=== PATIENT | female | born 1990 | race Caucasian/White ===

== ENCOUNTER 2020-11-15 16:22 | Inpatient (IN) | payer OTHER ==
[~2020-11-15] VITALS: Ht 152.4 cm; Wt 72.5 kg
[~2020-11-15 16:22] MED LIST: METF-960 PO; POTA20TA83 PO
[2020-11-15] MEDS ORDERED: MORPHINE SULFATE 4 MG/ML SYRINGE IVP ONE (16:30)
[2020-11-15] MEDS ORDERED: NITROGLYCERIN 2% (1 GM=INCH) PACKET TP ONE ×2 (16:30→20:15)
[2020-11-15] MEDS ORDERED: ONDANSETRON HCL 4 MG/2 ML VIAL IVP ONE (16:30)
[2020-11-15 16:53] LABS: GLUCOSE,POINT OF CARE 306 MG/DL (70-110)
[2020-11-15 17:10] LABS: COVID AG,FIA SOURCE NASOPHARYNGEAL
[2020-11-15] MEDS ORDERED: MORPHINE SULFATE 4 MG/ML SYRINGE IM ONE (17:30)
[2020-11-15] MEDS ORDERED: ONDANSETRON HCL 4 MG/2 ML VIAL IM ONE (17:30)
[2020-11-15 18:05] LABS: BASOPHILS % (AUTO) 1.1 % (0.0-2.0); EOSINOPHILS % (AUTO) 0.7 % (1.0-6.0); HEMATOCRIT 23.4 % (36-46); HEMOGLOBIN 7.6 g/dL (12.0-16.0); LYMPHOCYTES # (AUTO) 0.5 K/uL (1.0-4.8); LYMPHOCYTES % (AUTO) 3.8 % (22.0-44.0); MEAN CORPUSCULAR HEMOGLOBIN 31.8 pg (26.0-34.0); MEAN CORPUSCULAR HGB CONC 32.5 G/dL (31.0-37.0); MEAN CORPUSCULAR VOLUME 98 fL (80-100); MONOCYTES # (AUTO) 0.4 K/uL (0.1-1.0); MONOCYTES % (AUTO) 3.3 % (2.0-9.0); PLATELET COUNT (AUTO) 147 K/uL (150-450); RED BLOOD CELL COUNT(AUTO) 2.39 MIL/uL (4.00-5.20); RED CELL DISTRIBUTION WIDTH 19.3 % (11.5-14.5)
[2020-11-15 18:10] LABS: NEUTROPHILS % (AUTO) 91.1 % (40.0-70.0)
[2020-11-15 18:15] LABS: ANION GAP 13 mmol/L (8-16); CALCIUM, TOTAL 8.7 mg/dL (8.8-10.5); CARBON DIOXIDE 25 mmol/L (22-29); CHLORIDE 97 mmol/L (98-107); CREATININE 6.06 mg/dL (0.60-1.30); GLOMERULAR FILTR. RATE CALC 8 mL/min (>60); GLUCOSE,RANDOM 317 mg/dL (70-110); POTASSIUM 4.5 mmol/L (3.5-5.1); SODIUM SERUM 135 mmol/L (136-145); UREA NITROGEN, BLOOD 47 mg/dL (7-18)
[2020-11-15 18:40] LABS: ALANINE AMINOTRANSFERASE 33 U/L (12-78); ALBUMIN 3.2 g/dL (3.4-5.0); ALKALINE PHOSPHATASE 186 U/L (46-116); ASPARTATE AMINOTRANSFERASE 24 U/L (15-37); BILIRUBIN,TOTAL 0.9 mg/dL (0.1-1.0); CREATINE KINASE, TOTAL ONLY 94 U/L (26-192); HCG,QUANTITATIVE < 1 mIU/mL (0-6); TOTAL PROTEIN, SERUM 7.4 g/dL (6.4-8.2)
[2020-11-15 18:42] LABS: PLATELET MORPHOLOGY COMMENT LARGE PLTS PRESENT
[2020-11-15] MEDS ORDERED: CefTRIAXone 1 GM/DEXTROSE 50 ML IV ONE (18:45)
[2020-11-15] MEDS ORDERED: AZITHROMYCIN 500 MG/NS 250 ML IV ONE (18:45)
[2020-11-15] MEDS ORDERED: NITROGLYCERIN 50 MG/D5% WATER 250 ML IV PRN (18:45)
[2020-11-15 18:46] LABS: ABG A-A DIFF O2 409.2 mmHg (10-20.0); ABG CARBOXYHEMOGLOBIN 1.4 % (0.0-3.0); ABG HCO3 27.1 mmol/L (22.0-26.0); ABG METHEMOGLOBIN 0.3 % (0.0-1.5); ABG OXYGEN CONTENT 12.2 mL/dL (15.0-23.0); ABG OXYGEN SATURATION 99.9 % (95.0-98.0); ABG OXYHEMOGLOBIN 98.2 % (94.0-100.0); ABG PCO2 36 mmHg (35-45); ABG PH 7.486 (7.350-7.450); ABG TOTAL HEMOGLOBIN 8.3 G/dL (12.0-18.0); O2 DEVICE,BLOOD GAS BIPAP (ROOM AIR); SITE, BLOOD GAS RT RADIAL; SOURCE, BLOOD GAS ARTERIAL; SPONTANEOUS VT, BG 630 ml; TEMPERATURE, FAHRENHEIT, BG 98.6 FAHREN (96.0-98.6); VENT MODE, BG BIPAP (ROOM AIR)
[2020-11-15 18:47] LABS: INSPIRATORY TIME, BG 0.9 SEC
[2020-11-15 19:03] LABS: B-TYPE NATRIURETIC PEPTIDE 4650 pg/mL (0-100)
[2020-11-15] MEDS: MORPHINE SULFATE 4 MG/ML SYRINGE IVP ONE ×2 (19:40→22:31)
[2020-11-15] MEDS ORDERED: ACETAMINOPHEN 325 MG TABLET PO PRN (20:15)
[2020-11-15] MEDS ORDERED: DEXAMETHASONE SOD PHOS 4 MG/ML VIAL IVP ONE (20:15)
[2020-11-15] MEDS ORDERED: ONDANSETRON HCL 4 MG/2 ML VIAL IVP PRN (20:15)
[2020-11-15] MEDS ORDERED: DEXTROSE 50%-WATER 25 GM/50 ML SYRINGE IVP PRN (20:15)
[2020-11-15] MEDS ORDERED: LABETALOL HCL 100 MG TABLET PO ONE (20:15)
[2020-11-15] MEDS ORDERED: INSULIN GLARGINE,HUM.REC.ANLOG 100 UNITS/ML SQ SCH (21:00)
[2020-11-15] MEDS: HEPARIN SODIUM,PORCINE 5,000 UNITS/ML VIAL SQ SCH (21:22)
[2020-11-15] MEDS: INSULIN LISPRO 100 UNITS/ML SQ PRN (21:25)
[2020-11-15 22:28] LABS: GLUCOSE,POINT OF CARE 314 MG/DL (70-110)
[2020-11-15] MEDS ORDERED: AmLODIPine BESYLATE 5 MG TABLET PO ONE (22:30)
[2020-11-15] MEDS ORDERED: HydrALAZINE HCL 25 MG TABLET PO ONE (22:30)
[2020-11-15] MEDS: NiCARDipine HCL 25 MG in SODIUM CHLORIDE 0.9% 240 ML IV PRN (23:29)
[2020-11-15] MEDS ORDERED: HYDROmorphone 2 MG/ML VIAL IVP PRN (23:30)
[2020-11-16] VITALS: BP 186/112
[2020-11-16] MEDS ORDERED: AZITHROMYCIN 500 MG TABLET PO ONE
[2020-11-16] MEDS ORDERED: DiphenhydrAMINE HCL 50 MG/ML VIAL IM ONE (00:15)
[2020-11-16] MEDS ORDERED: ALBUTEROL SULFATE 2.5 MG/0.5 ML NEB SOLUTION NEB ONE (01:45)
[2020-11-16] MEDS ORDERED: ONDANSETRON HCL 4 MG/2 ML VIAL IVP ONE (01:45)
[2020-11-16] MEDS ORDERED: DEXAMETHASONE SOD PHOS 4 MG/ML VIAL IVP ONE (01:45)
[2020-11-16] MEDS: MORPHINE SULFATE 4 MG/ML SYRINGE IVP PRN ×4 (01:59→20:27)
[2020-11-16] MEDS ORDERED: FAMOTIDINE 10 MG/ML 2 ML VIAL IVP ONE (02:00)
[2020-11-16] MEDS ORDERED: HALOPERIDOL LACTATE 5 MG/ML VIAL IVP ONE (02:00)
[2020-11-16 02:14] LABS: ABG A-A DIFF O2 596.5 mmHg (10-20.0); ABG BASE EXCESS 4.8 mmol/L (-2.0-3.0); ABG CARBOXYHEMOGLOBIN 1.6 % (0.0-3.0); ABG HCO3 28.6 mmol/L (22.0-26.0); ABG METHEMOGLOBIN 0.3 % (0.0-1.5); ABG OXYGEN CONTENT 11.7 mL/dL (15.0-23.0); ABG OXYGEN SATURATION 96.4 % (95.0-98.0); ABG OXYHEMOGLOBIN 94.6 % (94.0-100.0); ABG PCO2 35 mmHg (35-45); ABG PH 7.513 (7.350-7.450); ABG TOTAL HEMOGLOBIN 8.7 G/dL (12.0-18.0); PO2, ARTERIAL BG 81.2 mmHg (80.0-100.0); SOURCE, BLOOD GAS ARTERIAL; TEMPERATURE, FAHRENHEIT, BG 98.6 FAHREN (96.0-98.6)
[2020-11-16 02:15] LABS: O2 DEVICE,BLOOD GAS NRB (ROOM AIR); SITE, BLOOD GAS RT RADIAL
[2020-11-16] MEDS: NiCARDipine HCL 25 MG in SODIUM CHLORIDE 0.9% 240 ML IV PRN ×2 (03:17→10:59)
[2020-11-16 03:56] LABS: ABG A-A DIFF O2 223.3 mmHg (10-20.0); ABG BASE EXCESS 4.4 mmol/L (-2.0-3.0); ABG CARBOXYHEMOGLOBIN 1.4 % (0.0-3.0); ABG HCO3 28.4 mmol/L (22.0-26.0); ABG METHEMOGLOBIN 0.3 % (0.0-1.5); ABG OXYGEN SATURATION 99.7 % (95.0-98.0); ABG PCO2 35 mmHg (35-45); ABG PH 7.514 (7.350-7.450); ABG TOTAL HEMOGLOBIN 8.8 G/dL (12.0-18.0); PO2, ARTERIAL BG 310.6 mmHg (80.0-100.0); SOURCE, BLOOD GAS ARTERIAL; TEMPERATURE, FAHRENHEIT, BG 98.6 FAHREN (96.0-98.6)
[2020-11-16 03:59] LABS: O2 DEVICE,BLOOD GAS BIPAP (ROOM AIR); SITE, BLOOD GAS RT RADIAL; VENT MODE, BG BIPAP (ROOM AIR)
[2020-11-16 04:00] VITALS: BP 152/96
[2020-11-16 04:00] LABS: INSPIRATORY TIME, BG 0.9 SEC; SPONTANEOUS VT, BG 657 ml
[2020-11-16] MEDS ORDERED: LORazepam 2 MG/ML VIAL IVP ONE (04:15)
[2020-11-16] MEDS ORDERED: SODIUM CHLORIDE 0.9% 100 ML ONE (04:18)
[2020-11-16] MEDS ORDERED: IOVERSOL 350 MG/ML 100 ML VIAL ONE (04:18)
[2020-11-16 06:44] LABS: CALCIUM, TOTAL 8.8 mg/dL (8.8-10.5); CREATININE 3.93 mg/dL (0.60-1.30); POTASSIUM 3.9 mmol/L (3.5-5.1)
[2020-11-16] MEDS ORDERED: PNEUMOCOCCAL VACCINE POLYVALENT 0.5 ML VIAL [PPSV23] IM. ONE (07:00)
[2020-11-16] MEDS: INSULIN LISPRO 100 UNITS/ML SQ PRN ×3 (07:50→17:33)
[2020-11-16 07:58] LABS: GLUCOSE,POINT OF CARE 186 MG/DL (70-110)
[2020-11-16 08:00] VITALS: BP 182/89
[2020-11-16] MEDS: HEPARIN SODIUM,PORCINE 5,000 UNITS/ML VIAL SQ SCH ×2 (08:06→20:27)
[2020-11-16 09:38] LABS: GLUCOSE,POINT OF CARE 212 MG/DL (70-110)
[2020-11-16] MEDS: FAMOTIDINE 20 MG TABLET PO SCH (10:26)
[2020-11-16] MEDS: DiphenhydrAMINE HCL 25 MG CAPSULE PO PRN ×2 (10:26→16:41)
[2020-11-16] MEDS: LORazepam 1 MG TABLET PO PRN ×2 (10:33→15:33)
[2020-11-16 10:56] LABS: PHOSPHORUS 3.4 mg/dL (2.5-4.9)
[2020-11-16 12:00] VITALS: BP 170/39
[2020-11-16] MEDS ORDERED: DiphenhydrAMINE HCL 25 MG CAPSULE PO SCH (12:00)
[2020-11-16] MEDS ORDERED: VANCOMYCIN HCL 1 GM/D5% WATER 200 ML IV SCH (12:00)
[2020-11-16] MEDS ORDERED: *CLINICAL-RENAL DOSING MEDICATIONS CLINICAL ONE (12:00)
[2020-11-16] MEDS ORDERED: EPOETIN ALFA 10,000 UNITS/ML VIAL SQ ONE (12:00)
[2020-11-16] MEDS: INSULIN GLARGINE,HUM.REC.ANLOG 100 UNITS/ML SQ SCH ×2 (12:05→20:30)
[2020-11-16] MEDS: VITAMIN B COMP/VIT C/FOLIC ACID CAPSULE PO SCH (12:44)
[2020-11-16] MEDS ORDERED: VANCOMYCIN HCL 1 GM/D5% WATER 200 ML IV PRN (12:45)
[2020-11-16] MEDS ORDERED: LIDOCAINE/PF 1% 2 ML VIAL ONE ×2 (12:55→16:57)
[2020-11-16] MEDS ORDERED: VANCOMYCIN HCL 1 GM/D5% WATER 200 ML IV ONE (13:00)
[2020-11-16] MEDS ORDERED: VANCOMYCIN HCL 1.5 GM in DEXTROSE 5%-WATER 250 ML IV ONE (13:00)
[2020-11-16 14:28] LABS: GLUCOSE,POINT OF CARE 408 MG/DL (70-110)
[2020-11-16 16:00] VITALS: BP 160/92
[2020-11-16] MEDS ORDERED: SODIUM CHLORIDE 0.9% 2,000 ML ONE (17:08)
[2020-11-16 20:00] VITALS: BP 175/95
[2020-11-16] MEDS ORDERED: LORazepam 2 MG/ML VIAL IVP PRN (20:15)
[2020-11-16] MEDS ORDERED: DiphenhydrAMINE/ZINC ACET 30 GM CREAM TP PRN (20:15)
[2020-11-16 20:27] LABS: GLUCOSE,POINT OF CARE 386 MG/DL (70-110)
[2020-11-16] MEDS: DiphenhydrAMINE HCL 50 MG/ML VIAL IVP PRN (20:28)
[2020-11-16] MEDS: CefTRIAXone 1 GM/DEXTROSE 50 ML IV SCH (22:25)
[2020-11-16] MEDS ORDERED: PERMETHRIN 5% 60 GM CREAM TP ONE (22:30)
[2020-11-16] MEDS ORDERED: SODIUM CHLORIDE 0.9% 250 ML IV ONE (22:50)
[2020-11-16] MEDS: OLANZapine 5 MG TABLET PO SCH (22:51)
[2020-11-17] VITALS (8 sets, daily range): BP systolic 144–179; BP diastolic 66–111
[2020-11-17 00:01] LABS: GLUCOSE,POINT OF CARE 216 MG/DL (70-110)
[2020-11-17] MEDS: MORPHINE SULFATE 4 MG/ML SYRINGE IVP PRN ×5 (00:27→20:13)
[2020-11-17] MEDS: NiCARDipine HCL 25 MG in SODIUM CHLORIDE 0.9% 240 ML IV PRN ×2 (00:38→07:38)
[2020-11-17] MEDS: DiphenhydrAMINE HCL 50 MG/ML VIAL IVP PRN ×4 (02:45→21:37)
[2020-11-17] MEDS ORDERED: DiphenhydrAMINE/ZINC ACET 30 GM CREAM TP PRN (04:15)
[2020-11-17 06:58] LABS: % IRON SATURATION 24.7 % (22-44)
[2020-11-17 07:05] LABS: PHOSPHORUS 3.7 mg/dL (2.5-4.9)
[2020-11-17] MEDS ORDERED: CloNIDine HCL 0.1 MG TABLET PO PRN (08:00)
[2020-11-17] MEDS: HEPARIN SODIUM,PORCINE 5,000 UNITS/ML VIAL SQ SCH ×2 (08:01→20:13)
[2020-11-17] MEDS: VITAMIN B COMP/VIT C/FOLIC ACID CAPSULE PO SCH (08:02)
[2020-11-17] MEDS: AmLODIPine BESYLATE 10 MG TABLET PO SCH (08:02)
[2020-11-17] MEDS: FAMOTIDINE 20 MG TABLET PO SCH (08:02)
[2020-11-17] MEDS: INSULIN GLARGINE,HUM.REC.ANLOG 100 UNITS/ML SQ SCH ×2 (08:06→20:27)
[2020-11-17 08:31] LABS: GLUCOSE,POINT OF CARE 113 MG/DL (70-110)
[2020-11-17 08:34] LABS: BASOPHILS % (AUTO) 0.6 % (0.0-2.0); EOSINOPHILS % (AUTO) 0.1 % (1.0-6.0); HEMATOCRIT 24.4 % (36-46); HEMOGLOBIN 8.1 g/dL (12.0-16.0); LYMPHOCYTES # (AUTO) 0.8 K/uL (1.0-4.8); LYMPHOCYTES % (AUTO) 8.1 % (22.0-44.0); MEAN CORPUSCULAR HEMOGLOBIN 32.3 pg (26.0-34.0); MEAN CORPUSCULAR VOLUME 98 fL (80-100); MONOCYTES # (AUTO) 0.6 K/uL (0.1-1.0); MONOCYTES % (AUTO) 6.4 % (2.0-9.0); NEUTROPHILS # (AUTO) 8.6 K/uL (1.8-7.7); NEUTROPHILS % (AUTO) 84.8 % (40.0-70.0); PLATELET COUNT (AUTO) 155 K/uL (150-450); RED BLOOD CELL COUNT(AUTO) 2.49 MIL/uL (4.00-5.20); RED CELL DISTRIBUTION WIDTH 18.3 % (11.5-14.5)
[2020-11-17 08:39] LABS: CALCIUM, TOTAL 8.9 mg/dL (8.8-10.5); CREATININE 3.28 mg/dL (0.60-1.30); POTASSIUM 4.2 mmol/L (3.5-5.1)
[2020-11-17] MEDS: INSULIN LISPRO 100 UNITS/ML SQ PRN ×3 (11:59→20:29)
[2020-11-17] MEDS ORDERED: LIDOCAINE/PF 1% 2 ML VIAL IM ONE (12:00)
[2020-11-17] MEDS: CloNIDine HCL 0.1 MG TABLET PO SCH ×2 (13:09→17:52)
[2020-11-17] MEDS ORDERED: SODIUM CHLORIDE 0.9% 2,000 ML ONE (14:29)
[2020-11-17] MEDS ORDERED: SODIUM CHLORIDE 0.9% 250 ML IV ONE (17:10)
[2020-11-17 17:17] LABS: GLUCOSE,POINT OF CARE 165 MG/DL (70-110)
[2020-11-17] MEDS: CefTRIAXone 1 GM/DEXTROSE 50 ML IV SCH (19:24)
[2020-11-17] MEDS: OLANZapine 5 MG TABLET PO SCH (20:13)
[2020-11-18 00:01] LABS: GLUCOMETER DEV NAME(LOC) 5S.1; GLUCOSE,POINT OF CARE 144 MG/DL (70-110)
[2020-11-18] MEDS: MORPHINE SULFATE 4 MG/ML SYRINGE IVP PRN ×2 (00:16→04:26)
[2020-11-18] MEDS: CloNIDine HCL 0.1 MG TABLET PO SCH ×2 (00:16→07:45)
[2020-11-18 00:22] VITALS: BP 163/102
[2020-11-18 03:52] VITALS: BP 150/78
[2020-11-18] MEDS: DiphenhydrAMINE HCL 50 MG/ML VIAL IVP PRN (04:42)
[2020-11-18 06:03] LABS: GLUCOMETER DEV NAME(LOC) 5N.1B; GLUCOSE,POINT OF CARE 70 MG/DL (70-110)
[2020-11-18 07:17] VITALS: BP 185/112
[2020-11-18] MEDS: FAMOTIDINE 20 MG TABLET PO SCH (07:45)
[2020-11-18] MEDS: AmLODIPine BESYLATE 10 MG TABLET PO SCH (07:45)
[2020-11-18] MEDS: VITAMIN B COMP/VIT C/FOLIC ACID CAPSULE PO SCH (07:45)
[2020-11-18] MEDS: HEPARIN SODIUM,PORCINE 5,000 UNITS/ML VIAL SQ SCH (07:47)
[2020-11-18] MEDS: INSULIN GLARGINE,HUM.REC.ANLOG 100 UNITS/ML SQ SCH (07:53)
[2020-11-18] MEDS ORDERED: EPOETIN ALFA 10,000 UNITS/ML VIAL SQ SCH (09:00)
[2020-11-18] MEDS ORDERED: VANCOMYCIN HCL 1 GM/D5% WATER 200 ML IV ONE (10:15)
[2020-11-18 13:08] LABS: GLUCOMETER DEV NAME(LOC) 5N.3; GLUCOSE,POINT OF CARE 210 MG/DL (70-110)
[2020-11-18 17:53] LABS: GLUCOMETER DEV NAME(LOC) 5S.1; GLUCOSE,POINT OF CARE 91 MG/DL (70-110)
== END 2020-11-18 09:35 | disposition left against medical advice (07) | DRG 133 ==
LOC: EMS 16:24 → ICU 19:39 → 5S 11-17 13:50
PROVIDERS: ADMIT Internal Medicine; ATTEND Internal Medicine
PROC: 5A09357 Assistance with Respiratory Ventilation, Less than 24 Consecutive Hours, Continuous Positive Airway Pressure (ICD-10-PCS; 2020-11-15)
PROC: 5A1935Z Respiratory Ventilation, Less than 24 Consecutive Hours (ICD-10-PCS; principal; 2020-11-16)
PROC: 5A09357 Assistance with Respiratory Ventilation, Less than 24 Consecutive Hours, Continuous Positive Airway Pressure (ICD-10-PCS; 2020-11-16)
PROC: 0BH17EZ Insertion of Endotracheal Airway into Trachea, Via Natural or Artificial Opening (ICD-10-PCS; 2020-11-16)
PROC: 5A1D70Z Performance of Urinary Filtration, Intermittent, Less than 6 Hours Per Day (ICD-10-PCS; 2020-11-16)
PROC: 5A1D70Z Performance of Urinary Filtration, Intermittent, Less than 6 Hours Per Day (ICD-10-PCS; 2020-11-17)
DX: J96.01 Acute respiratory failure with hypoxia (principal); I13.2 Hypertensive heart and chronic kidney disease with heart failure and with stage 5 chronic kidney disease, or end stage renal disease; G93.40 Encephalopathy, unspecified; J18.9 Pneumonia, unspecified organism; D69.6 Thrombocytopenia, unspecified; E11.22 Type 2 diabetes mellitus with diabetic chronic kidney disease; I31.3 Pericardial effusion (noninflammatory); E83.39 Other disorders of phosphorus metabolism; N18.6 End stage renal disease; G89.29 Other chronic pain; D63.1 Anemia in chronic kidney disease; I16.1 Hypertensive emergency; M54.5 Low back pain; F12.90 Cannabis use, unspecified, uncomplicated; I50.9 Heart failure, unspecified; Z53.29 Procedure and treatment not carried out because of patient's decision for other reasons; E11.65 Type 2 diabetes mellitus with hyperglycemia; L29.9 Pruritus, unspecified; Z20.822 Contact with and (suspected) exposure to COVID-19; Z86.16 Personal history of COVID-19; Z91.15 Patient's noncompliance with renal dialysis; Z91.14 Patient's other noncompliance with medication regimen; Z99.2 Dependence on renal dialysis; Z82.49 Family history of ischemic heart disease and other diseases of the circulatory system; Z79.899 Other long term (current) drug therapy; Z79.4 Long term (current) use of insulin; Z78.9 Other specified health status
CPT/HCPCS: 36600; 74177; 76830; 76856; 82306; 82728; 82805; 83540; 83550; 83735; 83970; 84100; 85379; 87040; 87081; 87340; 87426; 90935; 93005; 93306; 94660; 99291; A9575; G0378; J0456; J0696; J0885; J1100; J1170; J1200; J1630; J1644; J1815; J2060; J2270; J2405; J3370; J3490; J7030; J7050; J7060; 36415-L1; 36415-TC; 71045-TC; 80202-TC; U0003

== ENCOUNTER 2021-02-14 13:29 | Inpatient (IN) | payer OTHER ==
[~2021-02-14] VITALS: Ht 162.6 cm; Wt 74.2 kg
[~2021-02-14 13:29] MED LIST changes: -POTA20TA83 PO
[2021-02-14] MEDS ORDERED: 0.9% SODIUM CHLORIDE 10 ML SYRINGE IVP PRN (14:00)
[2021-02-14 14:44] LABS: COVID AG,FIA SOURCE NASOPHARYNGEAL
[2021-02-14] MEDS ORDERED: ONDANSETRON HCL 4 MG/2 ML VIAL IVP ONE (15:00)
[2021-02-14] MEDS ORDERED: MORPHINE SULFATE 4 MG/ML SYRINGE IVP ONE ×2 (15:00→16:15)
[2021-02-14 15:03] LABS: BASOPHILS % (AUTO) 1.1 % (0.0-2.0); EOSINOPHILS % (AUTO) 0.9 % (1.0-6.0); HEMATOCRIT 26.4 % (36-46); HEMOGLOBIN 8.3 g/dL (12.0-16.0); LYMPHOCYTES # (AUTO) 0.5 K/uL (1.0-4.8); LYMPHOCYTES % (AUTO) 4.7 % (22.0-44.0); MEAN CORPUSCULAR HEMOGLOBIN 30.6 pg (26.0-34.0); MEAN CORPUSCULAR HGB CONC 31.6 G/dL (31.0-37.0); MEAN CORPUSCULAR VOLUME 97 fL (80-100); MONOCYTES # (AUTO) 0.2 K/uL (0.1-1.0); MONOCYTES % (AUTO) 2.1 % (2.0-9.0); NEUTROPHILS # (AUTO) 10.4 K/uL (1.8-7.7); PLATELET COUNT (AUTO) 195 K/uL (150-450); RED BLOOD CELL COUNT(AUTO) 2.72 MIL/uL (4.00-5.20); RED CELL DISTRIBUTION WIDTH 18.1 % (11.5-14.5)
[2021-02-14 15:04] LABS: NEUTROPHILS % (AUTO) 91.2 % (40.0-70.0)
[2021-02-14 15:19] LABS: D-DIMER 2.3 mg/L FEU (0.00-0.50); INR 1.1 (0.9-1.1); PROTHROMBIN TIME 11.5 SEC (9.4-11.6)
[2021-02-14 15:20] LABS: B-TYPE NATRIURETIC PEPTIDE 4910 pg/mL (0-100)
[2021-02-14 15:26] LABS: ALANINE AMINOTRANSFERASE 18 U/L (12-78); ALBUMIN 3.4 g/dL (3.4-5.0); ALKALINE PHOSPHATASE 223 U/L (46-116); ANION GAP 14 mmol/L (8-16); ASPARTATE AMINOTRANSFERASE 15 U/L (15-37); BILIRUBIN,TOTAL 1.7 mg/dL (0.1-1.0); CALCIUM, TOTAL 9.2 mg/dL (8.8-10.5); CARBON DIOXIDE 22 mmol/L (22-29); CHLORIDE 95 mmol/L (98-107); CREATINE KINASE, TOTAL ONLY 58 U/L (26-192); CREATININE 6.96 mg/dL (0.60-1.30); GLOMERULAR FILTR. RATE CALC 7 mL/min (>60); GLUCOSE,RANDOM 391 mg/dL (70-110); HCG,QUANTITATIVE < 1 mIU/mL (0-6); LACTIC ACID 2.8 mmol/L (0.4-2.0); SODIUM SERUM 131 mmol/L (136-145); UREA NITROGEN, BLOOD 50 mg/dL (7-18)
[2021-02-14 15:28] LABS: POTASSIUM 6.1 mmol/L (3.5-5.1)
[2021-02-14] MEDS ORDERED: DEXTROSE 50%-WATER 25 GM/50 ML SYRINGE IVP ONE ×2 (16:00)
[2021-02-14] MEDS ORDERED: CALCIUM GLUCONATE 100 MG/ML 10 ML IVP ONE (16:00)
[2021-02-14] MEDS ORDERED: INSULIN REGULAR, HUMAN 100 UNITS/ML IVP ONE ×2 (16:00→16:30)
[2021-02-14] MEDS ORDERED: INSULIN REGULAR, HUMAN 100 UNITS/ML SQ ONE (16:00)
[2021-02-14 16:26] LABS: SOURCE, BLOOD GAS ARTERIAL; TEMPERATURE, FAHRENHEIT, BG 98.6 FAHREN (96.0-98.6)
[2021-02-14 16:35] LABS: ABG BASE EXCESS -0.3 mmol/L (-2.0-3.0); ABG CARBOXYHEMOGLOBIN 1.3 % (0.0-1.5); ABG HCO3 24.5 mmol/L (22.0-26.0); ABG METHEMOGLOBIN 0.1 % (0.0-1.5); ABG OXYGEN CONTENT 11.7 mL/dL (15.0-23.0); ABG OXYGEN SATURATION 97.7 % (95.0-98.0); ABG OXYHEMOGLOBIN 96.3 % (94.0-100.0); ABG PCO2 32 mmHg (35-45); ABG PH 7.474 (7.350-7.450); ABG TOTAL HEMOGLOBIN 8.5 G/dL (12.0-18.0); O2 DEVICE,BLOOD GAS BIPAP (ROOM AIR); PO2, ARTERIAL BG 103.9 mmHg (92.0-100.0); SITE, BLOOD GAS RT RADIAL
[2021-02-14 16:37] LABS: SPONTANEOUS VT, BG 488 ml
[2021-02-14] MEDS ORDERED: DiphenhydrAMINE HCL 50 MG/ML VIAL IVP ONE (17:30)
[2021-02-14] MEDS ORDERED: ACETAMINOPHEN 325 MG TABLET PO PRN ×2 (17:30→19:15)
[2021-02-14] MEDS ORDERED: SODIUM CHLORIDE 0.9% 2,000 ML ONE (18:07)
[2021-02-14] MEDS ORDERED: ALBUTEROL SULFATE 2.5 MG/0.5 ML NEB SOLUTION NEB PRN (19:15)
[2021-02-14] MEDS ORDERED: DEXTROSE 50%-WATER 25 GM/50 ML SYRINGE IVP PRN ×2 (19:15)
[2021-02-14] MEDS ORDERED: BISACODYL 10 MG RECTAL RECTAL SUPPOSITORY PR PRN (19:15)
[2021-02-14] MEDS ORDERED: IPRATROPIUM BROMIDE 0.5 MG/2.5 ML NEB SOLUTION NEB PRN (19:15)
[2021-02-14] MEDS ORDERED: ZOLPIDEM TARTRATE 5 MG TABLET PO PRN (19:15)
[2021-02-14] MEDS ORDERED: MAGNESIUM HYDROXIDE SUSPENSION 30 ML UDCUP PO PRN (19:15)
[2021-02-14 19:53] VITALS: BP_SYST 133; BP_SYST 193; BP_DIAS 113; BP_DIAS 83
[2021-02-14] MEDS: DOCUSATE SODIUM 100 MG CAPSULE PO SCH (21:00)
[2021-02-14] MEDS: MORPHINE SULFATE 2 MG/ML SYRINGE IVP PRN (22:21)
[2021-02-14] MEDS: HydrALAZINE HCL 20 MG/ML VIAL IVP PRN (23:31)
[2021-02-14] MEDS: HYDROCODONE/ACETAMINOPHEN 5-325 MG TABLET PO PRN (23:33)
[2021-02-14] MEDS ORDERED: SODIUM CHLORIDE 0.9% 500 ML IV ONE (23:40)
[2021-02-14] MEDS: CefTRIAXone SODIUM 2 GM in DEXTROSE 5%-WATER 50 ML IV SCH (23:58)
[2021-02-14] MEDS: HEPARIN SODIUM,PORCINE 5,000 UNITS/ML VIAL SQ SCH (23:59)
[2021-02-15] VITALS (7 sets, daily range): BP systolic 165–188; BP diastolic 91–116
[2021-02-15] MEDS: MORPHINE SULFATE 2 MG/ML SYRINGE IVP PRN ×8 (00:22→23:04)
[2021-02-15] MEDS: AZITHROMYCIN 500 MG/NS 250 ML IV SCH ×3 (00:27→22:42)
[2021-02-15] MEDS: INSULIN LISPRO 100 UNITS/ML SQ PRN ×2 (05:39→17:35)
[2021-02-15 06:45] LABS: BASOPHILS % (AUTO) 1.4 % (0.0-2.0); EOSINOPHILS % (AUTO) 2.2 % (1.0-6.0); HEMATOCRIT 24.9 % (36-46); HEMOGLOBIN 8.3 g/dL (12.0-16.0); LYMPHOCYTES % (AUTO) 10.1 % (22.0-44.0); MEAN CORPUSCULAR HEMOGLOBIN 31.2 pg (26.0-34.0); MEAN CORPUSCULAR HGB CONC 33.2 G/dL (31.0-37.0); MEAN CORPUSCULAR VOLUME 94 fL (80-100); MONOCYTES # (AUTO) 0.7 K/uL (0.1-1.0); MONOCYTES % (AUTO) 6.7 % (2.0-9.0); NEUTROPHILS # (AUTO) 8.2 K/uL (1.8-7.7); NEUTROPHILS % (AUTO) 79.6 % (40.0-70.0); PLATELET COUNT (AUTO) 203 K/uL (150-450); RED BLOOD CELL COUNT(AUTO) 2.65 MIL/uL (4.00-5.20); RED CELL DISTRIBUTION WIDTH 18.1 % (11.5-14.5)
[2021-02-15 06:57] LABS: CREATININE 4.96 mg/dL (0.60-1.30); PHOSPHORUS 4.7 mg/dL (2.5-4.9); POTASSIUM 4.3 mmol/L (3.5-5.1)
[2021-02-15 07:03] LABS: % IRON SATURATION 18.9 % (22-44)
[2021-02-15 07:28] LABS: GLUCOMETER DEV NAME(LOC) 5S.1; GLUCOSE,POINT OF CARE 139 MG/DL (70-110)
[2021-02-15 07:28] LABS: GLUCOMETER DEV NAME(LOC) 5S.1; GLUCOSE,POINT OF CARE 212 MG/DL (70-110)
[2021-02-15] MEDS: HEPARIN SODIUM,PORCINE 5,000 UNITS/ML VIAL SQ SCH ×3 (08:00→23:06)
[2021-02-15] MEDS: DOCUSATE SODIUM 100 MG CAPSULE PO SCH ×2 (08:39→21:00)
[2021-02-15] MEDS: HydrALAZINE HCL 20 MG/ML VIAL IVP PRN ×3 (08:39→23:39)
[2021-02-15] MEDS ORDERED: SODIUM CHLORIDE 0.9% 2,000 ML ONE (09:22)
[2021-02-15] MEDS: AmLODIPine BESYLATE 5 MG TABLET PO SCH (13:36)
[2021-02-15] MEDS: CefTRIAXone SODIUM 2 GM in DEXTROSE 5%-WATER 50 ML IV SCH ×2 (19:15→22:42)
[2021-02-15 23:11] LABS: GLUCOMETER DEV NAME(LOC) 5S.1; GLUCOSE,POINT OF CARE 157 MG/DL (70-110)
[2021-02-15 23:11] LABS: GLUCOMETER DEV NAME(LOC) 5S.1; GLUCOSE,POINT OF CARE 161 MG/DL (70-110)
[2021-02-16] MEDS: MORPHINE SULFATE 2 MG/ML SYRINGE IVP PRN ×7 (00:53→23:01)
[2021-02-16] MEDS: ONDANSETRON HCL 4 MG/2 ML VIAL IVP PRN ×3 (02:13→18:34)
[2021-02-16 04:09] VITALS: BP 164/85
[2021-02-16 06:04] LABS: GLUCOMETER DEV NAME(LOC) 5N.1C; GLUCOSE,POINT OF CARE 238 MG/DL (70-110)
[2021-02-16 06:36] LABS: CREATININE 4.64 mg/dL (0.60-1.30)
[2021-02-16] MEDS: INSULIN LISPRO 100 UNITS/ML SQ PRN ×4 (06:39→22:02)
[2021-02-16 07:46] VITALS: BP 171/92
[2021-02-16] MEDS: HEPARIN SODIUM,PORCINE 5,000 UNITS/ML VIAL SQ SCH ×3 (08:00→23:06)
[2021-02-16] MEDS ORDERED: SODIUM CHLORIDE 0.9% 100 ML ONE (08:00)
[2021-02-16] MEDS ORDERED: IOHEXOL 350 MG/ML 75 ML VIAL ONE (08:01)
[2021-02-16] MEDS: DOCUSATE SODIUM 100 MG CAPSULE PO SCH ×2 (08:12→20:50)
[2021-02-16] MEDS: AmLODIPine BESYLATE 5 MG TABLET PO SCH (08:15)
[2021-02-16] MEDS: EPOETIN ALFA 10,000 UNITS/ML VIAL SQ SCH (09:00)
[2021-02-16 11:30] LABS: GLUCOMETER DEV NAME(LOC) 5S.1; GLUCOSE,POINT OF CARE 233 MG/DL (70-110)
[2021-02-16] MEDS ORDERED: HydrALAZINE HCL 25 MG TABLET ONE (12:41)
[2021-02-16] MEDS ORDERED: HydrALAZINE HCL 25 MG TABLET PO ONE (12:45)
[2021-02-16 13:00] VITALS: BP 196/106
[2021-02-16 16:00] VITALS: BP 184/122
[2021-02-16] MEDS ORDERED: AmLODIPine BESYLATE 5 MG TABLET PO ONE (17:00)
[2021-02-16 17:03] LABS: GLUCOMETER DEV NAME(LOC) 5S.2B; GLUCOSE,POINT OF CARE 84 MG/DL (70-110)
[2021-02-16] MEDS: LOSARTAN POTASSIUM 50 MG TABLET PO SCH (17:11)
[2021-02-16 18:05] LABS: GLUCOMETER DEV NAME(LOC) 5S.2B; GLUCOSE,POINT OF CARE 172 MG/DL (70-110)
[2021-02-16 20:22] VITALS: BP 186/106
[2021-02-16] MEDS: HydrALAZINE HCL 20 MG/ML VIAL IVP PRN (20:41)
[2021-02-16] MEDS: HYDROCODONE/ACETAMINOPHEN 5-325 MG TABLET PO PRN (20:42)
[2021-02-16] MEDS: CefTRIAXone SODIUM 2 GM in DEXTROSE 5%-WATER 50 ML IV SCH (21:52)
[2021-02-16] MEDS ORDERED: SODIUM CHLORIDE 0.9% 250 ML IV ONE (22:31)
[2021-02-16] MEDS: AZITHROMYCIN 500 MG/NS 250 ML IV SCH (22:57)
[2021-02-16 23:49] VITALS: BP 172/98
[2021-02-17] MEDS ORDERED: SODIUM CHLORIDE 0.9% 250 ML IV ONE (00:28)
[2021-02-17] MEDS: MORPHINE SULFATE 2 MG/ML SYRINGE IVP PRN ×4 (03:23→15:16)
[2021-02-17] MEDS: HydrALAZINE HCL 20 MG/ML VIAL IVP PRN ×2 (03:42→15:17)
[2021-02-17 04:41] VITALS: BP 186/104
[2021-02-17] MEDS: ONDANSETRON HCL 4 MG/2 ML VIAL IVP PRN (05:20)
[2021-02-17] MEDS: INSULIN LISPRO 100 UNITS/ML SQ PRN ×4 (06:02→20:38)
[2021-02-17] MEDS: AmLODIPine BESYLATE 10 MG TABLET PO SCH (08:34)
[2021-02-17] MEDS: LOSARTAN POTASSIUM 50 MG TABLET PO SCH (08:34)
[2021-02-17] MEDS: HEPARIN SODIUM,PORCINE 5,000 UNITS/ML VIAL SQ SCH ×2 (08:34→14:39)
[2021-02-17] MEDS: DOCUSATE SODIUM 100 MG CAPSULE PO SCH ×2 (08:34→20:25)
[2021-02-17 08:51] VITALS: BP 181/99
[2021-02-17] MEDS: OMEPRAZOLE 20 MG CAPSULE PO SCH (09:30)
[2021-02-17] MEDS ORDERED: LOSARTAN POTASSIUM 50 MG TABLET PO ONE (10:30)
[2021-02-17 12:01] VITALS: BP 186/112
[2021-02-17] MEDS: VITAMIN B COMP/VIT C/FOLIC ACID CAPSULE PO SCH (12:30)
[2021-02-17 16:12] VITALS: BP 184/104
[2021-02-17] MEDS ORDERED: LIDOCAINE/PF 1% 2 ML VIAL ONE ×2 (17:13→17:15)
[2021-02-17] MEDS ORDERED: DiphenhydrAMINE HCL 50 MG/ML VIAL ONE ×2 (17:13→17:15)
[2021-02-17 17:15] LABS: GLUCOMETER DEV NAME(LOC) 5N.3; GLUCOSE,POINT OF CARE 234 MG/DL (70-110)
[2021-02-17 17:15] LABS: GLUCOMETER DEV NAME(LOC) 5N.3; GLUCOSE,POINT OF CARE 156 MG/DL (70-110)
[2021-02-17 17:15] LABS: GLUCOMETER DEV NAME(LOC) 5N.3; GLUCOSE,POINT OF CARE 175 MG/DL (70-110)
[2021-02-17 17:15] LABS: GLUCOMETER DEV NAME(LOC) 5N.3; GLUCOSE,POINT OF CARE 202 MG/DL (70-110)
[2021-02-17] MEDS ORDERED: LABETALOL HCL 5 MG/ML 20 ML VIAL IVP PRN (18:30)
[2021-02-17 20:02] VITALS: BP 170/91
[2021-02-17] MEDS: CloNIDine HCL 0.1 MG TABLET PO SCH (20:25)
[2021-02-17] MEDS: CefTRIAXone SODIUM 2 GM in DEXTROSE 5%-WATER 50 ML IV SCH (20:25)
[2021-02-17] MEDS: AZITHROMYCIN 500 MG/NS 250 ML IV SCH (22:10)
[2021-02-18 00:28] VITALS: BP 146/79
[2021-02-18] MEDS: MORPHINE SULFATE 2 MG/ML SYRINGE IVP PRN ×3 (00:31→09:19)
[2021-02-18] MEDS: HydrALAZINE HCL 20 MG/ML VIAL IVP PRN (04:28)
[2021-02-18 04:53] VITALS: BP 175/100
[2021-02-18 05:49] LABS: GLUCOMETER DEV NAME(LOC) 5N.3; GLUCOSE,POINT OF CARE 219 MG/DL (70-110)
[2021-02-18] MEDS: INSULIN LISPRO 100 UNITS/ML SQ PRN ×3 (06:11→18:06)
[2021-02-18] MEDS: VITAMIN B COMP/VIT C/FOLIC ACID CAPSULE PO SCH (08:11)
[2021-02-18] MEDS: DOCUSATE SODIUM 100 MG CAPSULE PO SCH (08:11)
[2021-02-18] MEDS: AmLODIPine BESYLATE 10 MG TABLET PO SCH (08:11)
[2021-02-18] MEDS: EPOETIN ALFA 10,000 UNITS/ML VIAL SQ SCH (08:11)
[2021-02-18] MEDS: HEPARIN SODIUM,PORCINE 5,000 UNITS/ML VIAL SQ SCH ×3 (08:11→15:34)
[2021-02-18] MEDS: CloNIDine HCL 0.1 MG TABLET PO SCH (08:11)
[2021-02-18] MEDS: OMEPRAZOLE 20 MG CAPSULE PO SCH (08:11)
[2021-02-18 08:30] VITALS: BP 171/93
[2021-02-18] MEDS ORDERED: LOSARTAN POTASSIUM 50 MG TABLET PO SCH (09:00)
[2021-02-18] MEDS: CloNIDine HCL 0.2 MG TABLET PO SCH ×2 (09:19→15:29)
[2021-02-18] MEDS ORDERED: HydrALAZINE HCL 25 MG TABLET PO SCH (10:30)
[2021-02-18 10:52] VITALS: BP 182/90
[2021-02-18 11:45] LABS: GLUCOMETER DEV NAME(LOC) 5N.3; GLUCOSE,POINT OF CARE 214 MG/DL (70-110)
[2021-02-18] MEDS ORDERED: SODIUM CHLORIDE 0.9% 2,000 ML ONE (15:21)
[2021-02-18 15:27] VITALS: BP 160/90
[2021-02-18 19:56] VITALS: BP 156/84
[2021-02-19 10:58] LABS: GLUCOMETER DEV NAME(LOC) 5N.3; GLUCOSE,POINT OF CARE 216 MG/DL (70-110)
[2021-02-19 10:58] LABS: GLUCOMETER DEV NAME(LOC) 5N.3; GLUCOSE,POINT OF CARE 203 MG/DL (70-110)
== END 2021-02-18 20:18 | disposition left against medical advice (07) | DRG 133 ==
LOC: EMS 13:35 → 5S 17:42 → 5N 02-16 10:54
PROVIDERS: ADMIT Hospitalist; ATTEND Hospitalist
PROC: 5A09357 Assistance with Respiratory Ventilation, Less than 24 Consecutive Hours, Continuous Positive Airway Pressure (ICD-10-PCS; principal; 2021-02-14)
PROC: 5A1D70Z Performance of Urinary Filtration, Intermittent, Less than 6 Hours Per Day (ICD-10-PCS; 2021-02-14)
PROC: 5A09357 Assistance with Respiratory Ventilation, Less than 24 Consecutive Hours, Continuous Positive Airway Pressure (ICD-10-PCS; 2021-02-15)
PROC: 5A1D70Z Performance of Urinary Filtration, Intermittent, Less than 6 Hours Per Day (ICD-10-PCS; 2021-02-15)
PROC: 5A1D70Z Performance of Urinary Filtration, Intermittent, Less than 6 Hours Per Day (ICD-10-PCS; 2021-02-17)
PROC: 5A1D70Z Performance of Urinary Filtration, Intermittent, Less than 6 Hours Per Day (ICD-10-PCS; 2021-02-18)
DX: J96.01 Acute respiratory failure with hypoxia (principal); I13.2 Hypertensive heart and chronic kidney disease with heart failure and with stage 5 chronic kidney disease, or end stage renal disease; E87.2 Acidosis; E11.22 Type 2 diabetes mellitus with diabetic chronic kidney disease; R65.10 Systemic inflammatory response syndrome (SIRS) of non-infectious origin without acute organ dysfunction; N18.6 End stage renal disease; E87.1 Hypo-osmolality and hyponatremia; I27.20 Pulmonary hypertension, unspecified; I07.1 Rheumatic tricuspid insufficiency; E87.5 Hyperkalemia; Z79.4 Long term (current) use of insulin; Z91.19 Patient's noncompliance with other medical treatment and regimen; Z99.2 Dependence on renal dialysis; F12.90 Cannabis use, unspecified, uncomplicated; D63.8 Anemia in other chronic diseases classified elsewhere; Z20.822 Contact with and (suspected) exposure to COVID-19; Z79.899 Other long term (current) drug therapy; I50.43 Acute on chronic combined systolic (congestive) and diastolic (congestive) heart failure
CPT/HCPCS: 36600; 71045; 71275; 72100; 80048; 80053; 82550; 82565; 82805; 82962; 83540; 83550; 83605; 83880; 84100; 84484; 84520; 84702; 85025; 85379; 85610; 85730; 87040; 87081; 87340; 93005; 94640; 94660; 99291; A9575; G0378; J0360; J0456; J0610; J0696; J0885; J1200; J1644; J1815; J2270; J2405; J3490; J7030; J7040; J7050; J7060; 36415-L1; 36415-TC; J7613; U0003

== ENCOUNTER 2021-06-08 07:56 | Inpatient (IN) | payer OTHER ==
[~2021-06-08] VITALS: Ht 162.6 cm; Wt 77.0 kg
[~2021-06-08 07:56] MED LIST changes: +METF-1211 PO; -METF-960 PO
[2021-06-08] MEDS ORDERED: ONDANSETRON HCL 4 MG/2 ML VIAL IVP ONE (08:45)
[2021-06-08] MEDS ORDERED: MORPHINE SULFATE 4 MG/ML SYRINGE IVP ONE ×2 (08:45→09:30)
[2021-06-08 09:00] LABS: BASOPHILS % (AUTO) 1.2 % (0.0-2.0); EOSINOPHILS % (AUTO) 3.1 % (1.0-6.0); HEMATOCRIT 23.3 % (36-46); HEMOGLOBIN 7.7 g/dL (12.0-16.0); LYMPHOCYTES # (AUTO) 0.7 K/uL (1.0-4.8); LYMPHOCYTES % (AUTO) 7.1 % (22.0-44.0); MEAN CORPUSCULAR HEMOGLOBIN 31.9 pg (26.0-34.0); MEAN CORPUSCULAR VOLUME 97 fL (80-100); MONOCYTES # (AUTO) 0.5 K/uL (0.1-1.0); MONOCYTES % (AUTO) 5.6 % (2.0-9.0); NEUTROPHILS # (AUTO) 7.9 K/uL (1.8-7.7); PLATELET COUNT (AUTO) 144 K/uL (150-450); RED BLOOD CELL COUNT(AUTO) 2.41 MIL/uL (4.00-5.20); RED CELL DISTRIBUTION WIDTH 18.6 % (11.5-14.5)
[2021-06-08 09:08] LABS: COVID AG,FIA SOURCE NASOPHARYNGEAL
[2021-06-08 09:10] LABS: CALCIUM, TOTAL 8.2 mg/dL (8.8-10.5); CREATININE 6.99 mg/dL (0.60-1.30); POTASSIUM 5.5 mmol/L (3.5-5.1)
[2021-06-08 09:16] LABS: ALBUMIN 3.2 g/dL (3.4-5.0); BILIRUBIN,TOTAL 1.2 mg/dL (0.1-1.0)
[2021-06-08] MEDS ORDERED: HydrALAZINE HCL 20 MG/ML VIAL IVP ONE (09:30)
[2021-06-08] MEDS ORDERED: 0.9% SODIUM CHLORIDE 10 ML SYRINGE IVP PRN (10:15)
[2021-06-08] MEDS ORDERED: ACETAMINOPHEN 325 MG TABLET PO PRN (10:15)
[2021-06-08] MEDS ORDERED: ONDANSETRON HCL 4 MG/2 ML VIAL IVP PRN (10:15)
[2021-06-08] MEDS ORDERED: LORazepam 2 MG/ML VIAL IVP ONE (10:30)
[2021-06-08] MEDS ORDERED: HYDROmorphone 2 MG/ML VIAL IVP ONE ×2 (10:30→14:00)
[2021-06-08] MEDS ORDERED: IOHEXOL 350 MG/ML 150 ML VIAL ONE (10:52)
[2021-06-08] MEDS ORDERED: SODIUM CHLORIDE 0.9% 100 ML ONE (10:52)
[2021-06-08] MEDS ORDERED: DiphenhydrAMINE HCL 50 MG/ML VIAL IVP ONE (11:30)
[2021-06-08] MEDS: OXYGEN THERAPY IH SCH ×2 (12:50→20:00)
[2021-06-08 15:37] VITALS: BP 150/95
[2021-06-08] MEDS ORDERED: SODIUM CHLORIDE 0.9% 1,000 ML ONE (16:26)
[2021-06-08] MEDS ORDERED: DiphenhydrAMINE HCL 50 MG/ML VIAL IVP PRN (18:30)
[2021-06-08 19:48] VITALS: BP 162/111
[2021-06-08] MEDS ORDERED: LORazepam 1 MG TABLET PO PRN (20:15)
[2021-06-08] MEDS ORDERED: DEXTROSE 50%-WATER 25 GM/50 ML SYRINGE IVP PRN (20:15)
[2021-06-08] MEDS: CloNIDine HCL 0.1 MG TABLET PO PRN (20:25)
[2021-06-08] MEDS: DiphenhydrAMINE HCL 25 MG CAPSULE PO PRN (20:25)
[2021-06-08] MEDS: HEPARIN SODIUM,PORCINE 5,000 UNITS/ML VIAL SQ SCH (20:26)
[2021-06-08 20:47] LABS: GLUCOMETER DEV NAME(LOC) 5N.1C; GLUCOSE,POINT OF CARE 95 MG/DL (70-110)
[2021-06-08] MEDS: MORPHINE SULFATE 2 MG/ML SYRINGE IVP PRN (22:16)
[2021-06-08 23:49] VITALS: BP 136/79
[2021-06-09 02:08] LABS: GLUCOMETER DEV NAME(LOC) 5S.2B; GLUCOSE,POINT OF CARE 309 MG/DL (70-110)
[2021-06-09 04:22] VITALS: BP 157/93
[2021-06-09 06:16] LABS: BASOPHILS % (AUTO) 0.8 % (0.0-2.0); EOSINOPHILS % (AUTO) 0.5 % (1.0-6.0); HEMATOCRIT 24.6 % (36-46); HEMOGLOBIN 7.9 g/dL (12.0-16.0); LYMPHOCYTES # (AUTO) 0.6 K/uL (1.0-4.8); LYMPHOCYTES % (AUTO) 6.5 % (22.0-44.0); MEAN CORPUSCULAR HEMOGLOBIN 31.8 pg (26.0-34.0); MEAN CORPUSCULAR HGB CONC 32.3 G/dL (31.0-37.0); MEAN CORPUSCULAR VOLUME 99 fL (80-100); MONOCYTES # (AUTO) 0.9 K/uL (0.1-1.0); MONOCYTES % (AUTO) 9.5 % (2.0-9.0); NEUTROPHILS # (AUTO) 7.8 K/uL (1.8-7.7); NEUTROPHILS % (AUTO) 82.7 % (40.0-70.0); PLATELET COUNT (AUTO) 134 K/uL (150-450); RED CELL DISTRIBUTION WIDTH 18.9 % (11.5-14.5)
[2021-06-09 06:40] LABS: ALBUMIN 3.3 g/dL (3.4-5.0); CALCIUM, TOTAL 8.6 mg/dL (8.8-10.5); CREATININE 5.86 mg/dL (0.60-1.30); TOTAL PROTEIN, SERUM 8.1 g/dL (6.4-8.2)
[2021-06-09 06:45] LABS: POTASSIUM 6.9 mmol/L (3.5-5.1)
[2021-06-09 06:58] LABS: GLUCOMETER DEV NAME(LOC) 5N.1C; GLUCOSE,POINT OF CARE 184 MG/DL (70-110)
[2021-06-09 06:58] LABS: GLUCOMETER DEV NAME(LOC) 5N.1C; GLUCOSE,POINT OF CARE 161 MG/DL (70-110)
[2021-06-09 06:58] LABS: GLUCOMETER DEV NAME(LOC) 5N.1C; GLUCOSE,POINT OF CARE 184 MG/DL (70-110)
[2021-06-09 06:58] LABS: GLUCOMETER DEV NAME(LOC) 5N.1C; GLUCOSE,POINT OF CARE 186 MG/DL (70-110)
[2021-06-09 06:58] LABS: GLUCOMETER DEV NAME(LOC) 5N.1C; GLUCOSE,POINT OF CARE 212 MG/DL (70-110)
[2021-06-09 07:50] VITALS: BP 180/101
[2021-06-09] MEDS: CloNIDine HCL 0.1 MG TABLET PO PRN (08:40)
[2021-06-09] MEDS: HEPARIN SODIUM,PORCINE 5,000 UNITS/ML VIAL SQ SCH ×2 (08:40→21:00)
[2021-06-09] MEDS ORDERED: DEXTROSE 50%-WATER 25 GM/50 ML SYRINGE IVP ONE (09:00)
[2021-06-09] MEDS ORDERED: CALCIUM GLUCONATE 100 MG/ML 10 ML IVP ONE (09:00)
[2021-06-09] MEDS ORDERED: INSULIN REGULAR, HUMAN 100 UNITS/ML IVP ONE (09:00)
[2021-06-09] MEDS ORDERED: SODIUM CHLORIDE 0.9% 2,000 ML ONE (09:21)
[2021-06-09] MEDS: EPOETIN ALFA 10,000 UNITS/ML VIAL SQ SCH (11:00)
[2021-06-09 11:50] VITALS: BP 186/109
[2021-06-09 11:57] LABS: GLUCOMETER DEV NAME(LOC) 5N.1C; GLUCOSE,POINT OF CARE 196 MG/DL (70-110)
[2021-06-09] MEDS ORDERED: DiphenhydrAMINE HCL 50 MG/ML VIAL IM ONE (15:37)
[2021-06-09 15:50] VITALS: BP 208/103
[2021-06-09] MEDS: AmLODIPine BESYLATE 10 MG TABLET PO SCH (16:39)
[2021-06-09] MEDS: LOSARTAN POTASSIUM 25 MG TABLET PO SCH (16:39)
[2021-06-09] MEDS: INSULIN LISPRO 100 UNITS/ML SQ PRN (21:10)
[2021-06-09 21:22] VITALS: BP 191/105
[2021-06-09 21:22] LABS: GLUCOMETER DEV NAME(LOC) 5S.1; GLUCOSE,POINT OF CARE 301 MG/DL (70-110)
[2021-06-10] VITALS (10 sets, daily range): BP systolic 147–195; BP diastolic 63–111
[2021-06-10] MEDS: HydrALAZINE HCL 20 MG/ML VIAL IVP PRN (00:15)
[2021-06-10 00:55] LABS: GLUCOMETER DEV NAME(LOC) 5N.3; GLUCOSE,POINT OF CARE 240 MG/DL (70-110)
[2021-06-10] MEDS: HYDROCODONE/ACETAMINOPHEN 5-325 MG TABLET PO PRN ×3 (04:12→22:16)
[2021-06-10] MEDS: CloNIDine HCL 0.1 MG TABLET PO PRN ×2 (04:28→12:33)
[2021-06-10] MEDS ORDERED: ONDANSETRON HCL 4 MG/2 ML VIAL IVP PRN (05:15)
[2021-06-10] MEDS: MORPHINE SULFATE 2 MG/ML SYRINGE IVP PRN ×4 (05:17→23:18)
[2021-06-10 05:33] LABS: GLUCOMETER DEV NAME(LOC) 5S.1; GLUCOSE,POINT OF CARE 256 MG/DL (70-110)
[2021-06-10] MEDS: INSULIN LISPRO 100 UNITS/ML SQ PRN ×4 (06:14→22:15)
[2021-06-10 07:53] LABS: BASOPHILS % (AUTO) 1.3 % (0.0-2.0); EOSINOPHILS % (AUTO) 3.9 % (1.0-6.0); HEMATOCRIT 26.3 % (36-46); HEMOGLOBIN 8.7 g/dL (12.0-16.0); LYMPHOCYTES # (AUTO) 0.8 K/uL (1.0-4.8); MEAN CORPUSCULAR HGB CONC 33.2 G/dL (31.0-37.0); MEAN CORPUSCULAR VOLUME 96 fL (80-100); MONOCYTES % (AUTO) 11.8 % (2.0-9.0); NEUTROPHILS # (AUTO) 6.1 K/uL (1.8-7.7); PLATELET COUNT (AUTO) 161 K/uL (150-450); RED BLOOD CELL COUNT(AUTO) 2.73 MIL/uL (4.00-5.20)
[2021-06-10 08:05] LABS: ALBUMIN 3.1 g/dL (3.4-5.0); BILIRUBIN,TOTAL 1.5 mg/dL (0.1-1.0); CALCIUM, TOTAL 8.8 mg/dL (8.8-10.5); CREATININE 4.48 mg/dL (0.60-1.30); TOTAL PROTEIN, SERUM 7.9 g/dL (6.4-8.2)
[2021-06-10 08:13] LABS: GLUCOMETER DEV NAME(LOC) 5S.2B; GLUCOSE,POINT OF CARE 246 MG/DL (70-110)
[2021-06-10] MEDS: LOSARTAN POTASSIUM 25 MG TABLET PO SCH (08:30)
[2021-06-10] MEDS: AmLODIPine BESYLATE 10 MG TABLET PO SCH (08:30)
[2021-06-10] MEDS: HEPARIN SODIUM,PORCINE 5,000 UNITS/ML VIAL SQ SCH ×2 (08:30→20:58)
[2021-06-10] MEDS: DiphenhydrAMINE HCL 25 MG CAPSULE PO PRN ×2 (11:51→22:16)
[2021-06-10] MEDS ORDERED: SIMETHICONE 80 MG CHEWABLE TABLET CHEW PRN (12:30)
[2021-06-10] MEDS ORDERED: LIDOCAINE/PF 1% 2 ML VIAL CAUDAL ONE (15:39)
[2021-06-10 18:12] LABS: GLUCOMETER DEV NAME(LOC) 5N.1C; GLUCOSE,POINT OF CARE 250 MG/DL (70-110)
[2021-06-10 18:13] LABS: GLUCOMETER DEV NAME(LOC) 5N.1C; GLUCOSE,POINT OF CARE 255 MG/DL (70-110)
[2021-06-11 03:38] VITALS: BP 159/89
[2021-06-11] MEDS: MORPHINE SULFATE 2 MG/ML SYRINGE IVP PRN ×3 (04:39→21:34)
[2021-06-11] MEDS: INSULIN LISPRO 100 UNITS/ML SQ PRN ×4 (05:51→21:41)
[2021-06-11 06:16] LABS: GLUCOMETER DEV NAME(LOC) 5N.1C; GLUCOSE,POINT OF CARE 150 MG/DL (70-110)
[2021-06-11 06:17] LABS: GLUCOMETER DEV NAME(LOC) 5N.3; GLUCOSE,POINT OF CARE 224 MG/DL (70-110)
[2021-06-11 06:53] LABS: BASOPHILS % (AUTO) 1.5 % (0.0-2.0); EOSINOPHILS % (AUTO) 8.2 % (1.0-6.0); HEMATOCRIT 27.6 % (36-46); HEMOGLOBIN 8.8 g/dL (12.0-16.0); LYMPHOCYTES % (AUTO) 14.4 % (22.0-44.0); MEAN CORPUSCULAR HEMOGLOBIN 31.2 pg (26.0-34.0); MEAN CORPUSCULAR HGB CONC 31.9 G/dL (31.0-37.0); MEAN CORPUSCULAR VOLUME 98 fL (80-100); MONOCYTES # (AUTO) 0.8 K/uL (0.1-1.0); MONOCYTES % (AUTO) 11.3 % (2.0-9.0); NEUTROPHILS # (AUTO) 4.4 K/uL (1.8-7.7); NEUTROPHILS % (AUTO) 64.6 % (40.0-70.0); PLATELET COUNT (AUTO) 176 K/uL (150-450); RED BLOOD CELL COUNT(AUTO) 2.82 MIL/uL (4.00-5.20)
[2021-06-11 07:05] LABS: ALBUMIN 3.2 g/dL (3.4-5.0); BILIRUBIN,TOTAL 1.3 mg/dL (0.1-1.0); CALCIUM, TOTAL 8.7 mg/dL (8.8-10.5); CREATININE 5.68 mg/dL (0.60-1.30); POTASSIUM 4.5 mmol/L (3.5-5.1); TOTAL PROTEIN, SERUM 7.9 g/dL (6.4-8.2)
[2021-06-11 07:29] LABS: MAGNESIUM 2.3 mg/dL (1.80-2.40)
[2021-06-11 07:37] VITALS: BP 121/62
[2021-06-11 07:46] VITALS: BP 206/117
[2021-06-11] MEDS: EPOETIN ALFA 10,000 UNITS/ML VIAL SQ SCH (09:00)
[2021-06-11] MEDS ORDERED: LOSARTAN POTASSIUM 50 MG TABLET PO SCH (09:00)
[2021-06-11] MEDS: VITAMIN B COMP/VIT C/FOLIC ACID CAPSULE PO SCH (09:20)
[2021-06-11] MEDS: DiphenhydrAMINE HCL 25 MG CAPSULE PO PRN ×2 (09:20→21:34)
[2021-06-11] MEDS: HEPARIN SODIUM,PORCINE 5,000 UNITS/ML VIAL SQ SCH ×3 (09:20→21:34)
[2021-06-11] MEDS: LOSARTAN POTASSIUM 50 MG TABLET PO SCH ×2 (09:21→21:34)
[2021-06-11] MEDS: AmLODIPine BESYLATE 10 MG TABLET PO SCH ×2 (09:21→21:34)
[2021-06-11 11:27] VITALS: BP 191/101
[2021-06-11] MEDS: HydrALAZINE HCL 20 MG/ML VIAL IVP PRN (12:15)
[2021-06-11 12:36] LABS: GLUCOMETER DEV NAME(LOC) 5N.3; GLUCOSE,POINT OF CARE 187 MG/DL (70-110)
[2021-06-11 15:17] VITALS: BP 158/78
[2021-06-11] MEDS: HYDROCODONE/ACETAMINOPHEN 5-325 MG TABLET PO PRN (17:14)
[2021-06-11 18:06] LABS: GLUCOMETER DEV NAME(LOC) 5S.2B; GLUCOSE,POINT OF CARE 238 MG/DL (70-110)
[2021-06-11 20:29] VITALS: BP 179/92
[2021-06-12 01:00] VITALS: BP 187/100
[2021-06-12] MEDS: CloNIDine HCL 0.1 MG TABLET PO PRN (01:14)
[2021-06-12] MEDS: MORPHINE SULFATE 2 MG/ML SYRINGE IVP PRN (03:31)
[2021-06-12 05:30] VITALS: BP 174/96
[2021-06-12] MEDS: INSULIN LISPRO 100 UNITS/ML SQ PRN ×2 (06:19→14:43)
[2021-06-12 07:47] LABS: GLUCOMETER DEV NAME(LOC) 5S.2B; GLUCOSE,POINT OF CARE 242 MG/DL (70-110)
[2021-06-12 07:47] LABS: GLUCOMETER DEV NAME(LOC) 5S.2B; GLUCOSE,POINT OF CARE 248 MG/DL (70-110)
[2021-06-12] MEDS: VITAMIN B COMP/VIT C/FOLIC ACID CAPSULE PO SCH (08:09)
[2021-06-12] MEDS: HEPARIN SODIUM,PORCINE 5,000 UNITS/ML VIAL SQ SCH (08:10)
[2021-06-12] MEDS ORDERED: SODIUM CHLORIDE 0.9% 2,000 ML ONE (10:10)
[2021-06-12] MEDS: DiphenhydrAMINE HCL 25 MG CAPSULE PO PRN (10:56)
[2021-06-12 12:00] LABS: GLUCOMETER DEV NAME(LOC) 5S.2B; GLUCOSE,POINT OF CARE 196 MG/DL (70-110)
[2021-06-12] MEDS ORDERED: AMLO-258 PO (12:27)
[2021-06-12] MEDS ORDERED: LOSA50TA37 PO (12:28)
[2021-06-12] MEDS ORDERED: GLIP5 PO (12:30)
[2021-06-12 13:30] LABS: BASOPHILS % (AUTO) 1.7 % (0.0-2.0); EOSINOPHILS % (AUTO) 7.1 % (1.0-6.0); HEMATOCRIT 27.5 % (36-46); HEMOGLOBIN 8.9 g/dL (12.0-16.0); LYMPHOCYTES # (AUTO) 0.5 K/uL (1.0-4.8); LYMPHOCYTES % (AUTO) 8.7 % (22.0-44.0); MEAN CORPUSCULAR HEMOGLOBIN 31.5 pg (26.0-34.0); MEAN CORPUSCULAR HGB CONC 32.2 G/dL (31.0-37.0); MEAN CORPUSCULAR VOLUME 98 fL (80-100); MONOCYTES # (AUTO) 0.8 K/uL (0.1-1.0); MONOCYTES % (AUTO) 12.2 % (2.0-9.0); NEUTROPHILS # (AUTO) 4.4 K/uL (1.8-7.7); NEUTROPHILS % (AUTO) 70.3 % (40.0-70.0); PLATELET COUNT (AUTO) 190 K/uL (150-450); RED BLOOD CELL COUNT(AUTO) 2.82 MIL/uL (4.00-5.20)
[2021-06-12 13:50] LABS: ALBUMIN 3.2 g/dL (3.4-5.0); BILIRUBIN,TOTAL 1.3 mg/dL (0.1-1.0); CALCIUM, TOTAL 8.8 mg/dL (8.8-10.5); CREATININE 3.05 mg/dL (0.60-1.30); POTASSIUM 3.6 mmol/L (3.5-5.1); TOTAL PROTEIN, SERUM 7.8 g/dL (6.4-8.2)
[2021-06-12] MEDS: LOSARTAN POTASSIUM 50 MG TABLET PO SCH (14:42)
[2021-06-12] MEDS: AmLODIPine BESYLATE 10 MG TABLET PO SCH (14:42)
== END 2021-06-12 16:10 | disposition home or self-care (01) | DRG 199 ==
LOC: EMS 08:10 → 5S 14:02
PROVIDERS: ADMIT Hospitalist; ATTEND Hospitalist
DX: I16.1 Hypertensive emergency (principal); N18.6 End stage renal disease; E44.0 Moderate protein-calorie malnutrition; R18.8 Other ascites; D63.1 Anemia in chronic kidney disease; E11.40 Type 2 diabetes mellitus with diabetic neuropathy, unspecified; E11.22 Type 2 diabetes mellitus with diabetic chronic kidney disease; E87.79 Other fluid overload; E11.319 Type 2 diabetes mellitus with unspecified diabetic retinopathy without macular edema; I13.2 Hypertensive heart and chronic kidney disease with heart failure and with stage 5 chronic kidney disease, or end stage renal disease; R16.0 Hepatomegaly, not elsewhere classified; E87.5 Hyperkalemia; Z20.822 Contact with and (suspected) exposure to COVID-19; G25.81 Restless legs syndrome; G89.29 Other chronic pain; I50.9 Heart failure, unspecified; E11.65 Type 2 diabetes mellitus with hyperglycemia; Z99.2 Dependence on renal dialysis; Z91.19 Patient's noncompliance with other medical treatment and regimen; Z79.4 Long term (current) use of insulin
CPT/HCPCS: 71045; 71260; 72193; 74160; 80053; 82140; 82962; 83605; 83690; 83735; 83880; 84100; 84484; 84703; 85025; 87081; 87340; 90935; 93005; 99291; J0360; J0885; J1170; J1200; J1644; J1815; J2060; J2270; J2405; J3490; J7030; J7050; Q9967; 36415-L1; 36415-TC; U0003